=== PATIENT | male | born 1970 | race Native Hawaiian/Other Pacific Islander ===

== ENCOUNTER 2021-04-11 09:18 | Outpatient (CLI) | payer OTHER ==
--- NOTE | 2021-04-11 14:08 | Fluoroscopy Report ---
MODIFIED BARIUM SWALLOW INDICATION: DYSPHAGIA TECHNIQUE: Swallowing was evaluated in the lateral position under direct fluoroscopy. FINDINGS: The patient was evaluated with thin liquid, puree, semisolid and solid consistencies. Mild vallecular residuals were noted with all consistencies which cleared after additional swallowing . There is no evidence for penetration or aspiration. IMPRESSION: Vallecular residuals as described. No evidence for aspiration. Fluoroscopic time: 1.4 minutes Number of fluoroscopic images: 1 Signer Name: Jose Lainez Jr, MD Signed: 04/11/2021 2:04 PM Workstation Name: [id number]
== END 2021-04-11 09:19 | disposition home or self-care (01) ==
LOC: PT 09:18
PROVIDERS: ATTEND Otolaryngology
DX: R07.0 Pain in throat (principal); R49.9 Unspecified voice and resonance disorder
CPT/HCPCS: 74230